=== PATIENT | female | born 1940 | race Caucasian/White ===

== ENCOUNTER → 2019-03-20 | Outpatient (CLI) | payer OTHER ==
[~2019-03-20] MED LIST: ASPI81EC PO; CLOP75; ENAL5 PO; ESTR2; LIVALO2 MG; METO25ER; NITR.6SL SL; NITR100CA PO; Ocuvite Lutein1 EACH; Red Yeast Rice600 MG; [UNRECOGNIZED DRUG - REMARK]
[2019-03-21 13:07] LABS: HPV 16 Negative (Negative); HPV 18 Negative (Negative); HPV OTHER HR TYPES Negative (Negative)
== END | disposition home or self-care (01) ==
LOC: LAB SHORT 11:53 → LAB 11:53
PROVIDERS: Nurse Practitioner Women's Health
DX: Z12.72 Encounter for screening for malignant neoplasm of vagina (principal)
CPT/HCPCS: 87624; G0123

== ENCOUNTER 2020-08-23 07:09 | Inpatient (IN) | payer OTHER, MEDICARE ==
[~2020-08-23] VITALS: Ht 165 cm; Wt 86.9 kg
[~2020-08-23 07:09] MED LIST changes: -ASPI81EC PO; +Aspir 8181 MG PO; +COQ-10100 MG PO; +ENAL10 PO; -ENAL5 PO; -ESTR2; +ESTR2 PO; +EUTHYROX75 MCG PO; +Isosorbide Mono30 MG PO; -METO25ER; +METO25ER PO; +VIT1CAPS12 PO; +VITAMIN D310 MC4 PO; +Vasotec PO
--- NOTE | 2020-08-23 08:47 | NUR ---
Ambulatory in Day Surgery History, Chart, Medications and Allergies reviewed before start of procedure.Patient confirms NPO status and agrees with scheduled surgery. Patient reports completing Chlorhexadine shower X2 prior to admission to hospital.Surgical site prepped with 2% Chlorhexidine cloth wipe. PT WITH PROIR SCRATCH TO L HIP CANCELLED PROIR SURGERY. PREOP ASSESMENT DONE UNDER PROIR ACCT NUMBER. SCRATCH TO L HIP RESOLVED AT THIS TIME. NOSIN NASAL SWABS DONE
--- NOTE | 2020-08-23 15:24 | NUR ---
1140 to room via bed. right hip dressing dry and intact. pt denies any pain. reports slight numbness soles of bilat feet. pt able to do ankle pumps and wiggle toes
--- NOTE | 2020-08-23 18:12 | NUR ---
SUMMARY PT REPORTS 06/02 "DISCOMFORT" TO RIGHT HIP. PT MALLIKA PO FOOD AND FLUIDS, VOIDING CLEAR YELLOW URINE. AMBULATING WITH STANDB ASSIST. HIP DRESSING DRY AND INTACT. PT DENIES ANY NUMBNESS OR TINGLING
[2020-08-24 03:45] LABS: BASOPHILS ABSOLUTE AUTO 0.03 K/mm3 (0.00-0.23); BASOPHILS PERCENT AUTO 0 % (0-2); EOSINOPHILS PERCENT AUTO 1 % (0-6); Hematocrit 34.1 % (33.0-51.0); IMMATURE GRAN ABSOLUTE AUTO 0.03 K/mm3 (0.00-0.10); IMMATURE GRAN PERCENT AUTO 0 % (0-1); LYMPHOCYTES ABSOLUTE AUTO 0.74 K/mm3 (0.84-5.20); LYMPHOCYTES PERCENT AUTO 8 % (21-46); MONOCYTES ABSOLUTE AUTO 0.68 K/mm3 (0.16-1.47); MONOCYTES PERCENT AUTO 7 % (4-13); Mean Corpuscular HGB 28.2 pg (26.0-34.0); Mean Corpuscular HGB Conc 32.3 g/dL (31.5-36.5); Mean Corpuscular Volume 87 fL (80-100); Mean Platelet Volume 10.4 fL (9.1-12.4); NEUTROPHILS ABSOLUTE AUTO 7.96 K/mm3 (1.96-9.15); NEUTROPHILS PERCENT AUTO 84 % (41-73); Platelet Count 208 K/mm3 (150-400); RDW Coefficient Variation 14.6 % (11.7-14.2); RDW Standard Deviation 46.7 fL (35.1-46.3); White Blood Cell Count 9.54 K/mm3 (4.00-11.30)
[2020-08-24 04:01] LABS: Anion Gap 4 mmol/L (6-16); Blood Urea Nitrogen 24 mg/dL (8-24); Bun/Creatinine Ratio 29.2 (12.0-20.0); CO2, Blood 26 mmol/L (21-32); Chloride, Blood 108 mmol/L (98-108); Creatinine, Blood 0.82 mg/dL (0.40-1.00); Glomerular Filtration Rate >60 (60-); Glucose, Blood 122 mg/dL (70-99); Potassium, Blood 4.2 mmol/L (3.5-5.5); Sodium, Blood 138 mmol/L (136-145)
--- NOTE | 2020-08-24 06:09 | NUR ---
SHIFT SUMMARY POD1 RTHA, A/O X4, VSS, TOLERATING PO, VOIDING WELL, AMBULATING W/ 1 PERSON SBA, PAIN WELL MANAGED W/ REGULAR SCHEDULED MEDICATIONS. NO ACUTE EVENTS THIS SHIFT. CALL LIGHT IN REACH, WILL CONTINUE TO MONITOR AND REPORT TO ONCOMING DAY RN.
[2020-08-24] MEDS ORDERED: Percocet 5-3251 EACH PO (09:54)
--- NOTE | 2020-08-24 10:30 | NUR ---
REMOVED PERIPHERAL WNL, PT AND SPOUSE PROVIDED WITH DISCHARGE TEACHING, PRINTED PATERIALS AND STATE UNDERSTANDING OF INSTRUCTIONS. PT'S SPOUSE TRANSFERRED PT'S BELONGINGS TO AWAITING VEHICLE. PT TRANSFERRED TO AWAITING VEHICLE VIA WHEELCHAIR. PT PROVIDED WITH AQUACEL DRESSING X 1 FOR DRESSING CHANGE.
--- NOTE | 2020-08-24 10:38 | NUR ---
DC'D [place] INSTRUCTIONS GIVEN BY MARTA CEDILLO.
== END 2020-08-24 10:35 | disposition home or self-care (01) | DRG 470 ==
LOC: SURS 07:09 → PRE IP 09:00 → SURS 12:11
PROVIDERS: ADMIT Orthopaedic Surgery
PROC: 0SR904A Replacement of Right Hip Joint with Ceramic on Polyethylene Synthetic Substitute, Uncemented, Open Approach (ICD-10-PCS; principal; 2020-08-23 09:00)
DX: M16.11 Unilateral primary osteoarthritis, right hip (principal); I13.0 Hypertensive heart and chronic kidney disease with heart failure and stage 1 through stage 4 chronic kidney disease, or unspecified chronic kidney disease; I25.10 Atherosclerotic heart disease of native coronary artery without angina pectoris; N18.9 Chronic kidney disease, unspecified; E78.5 Hyperlipidemia, unspecified; I50.9 Heart failure, unspecified; K21.9 Gastro-esophageal reflux disease without esophagitis; E66.9 Obesity, unspecified; E07.9 Disorder of thyroid, unspecified; Z95.3 Presence of xenogenic heart valve; Z87.891 Personal history of nicotine dependence; Z79.899 Other long term (current) drug therapy; Z95.1 Presence of aortocoronary bypass graft; Z68.32 Body mass index [BMI] 32.0-32.9, adult
CPT/HCPCS: 36415; 72170; 80048; 85025; 97110; 97116; 97161; 97530; A9270; C1776; J0171; J0690; J0735; J1885; J2370; J2405; J2704; J2795; J3010; J7120

== ENCOUNTER → 2021-10-29 | Outpatient (CLI) | payer OTHER ==
[~2021-10-29] MED LIST changes: +Percocet 5-3251 EACH PO
== END | disposition home or self-care (01) ==
LOC: PLD 14:57 → LAB SHORT 14:57
DX: D22.5 Melanocytic nevi of trunk (principal)
CPT/HCPCS: 88305

== ENCOUNTER 2023-01-15 08:40 | Emergency (ER) | payer OTHER ==
[~2023-01-15] VITALS: Ht 165.1 cm; Wt 83.5 kg
[~2023-01-15 08:40] MED LIST changes: +Amlodipine Bes2.5 MG PO; -EUTHYROX75 MCG PO; +EUTHYROX88 MCG PO; +ISOSORBIDE MONO30 MG PO; +PLAVIX75 MG PO
[2023-01-15 09:19] VITALS: BP 185/78
== END 2023-01-15 09:22 | disposition home or self-care (01) ==
LOC: ER 08:40
DX: R04.0 Epistaxis (principal); I10 Essential (primary) hypertension; I25.10 Atherosclerotic heart disease of native coronary artery without angina pectoris; E03.9 Hypothyroidism, unspecified; Z79.82 Long term (current) use of aspirin; Z79.890 Hormone replacement therapy; Z79.899 Other long term (current) drug therapy; Z88.8 Allergy status to other drugs, medicaments and biological substances; Z95.1 Presence of aortocoronary bypass graft; Z87.891 Personal history of nicotine dependence
CPT/HCPCS: 99283

== ENCOUNTER 2023-01-19 09:14 | Emergency (ER) | payer OTHER ==
[~2023-01-19] VITALS: Ht 165.1 cm; Wt 83.5 kg
[2023-01-19 10:19] VITALS: BP 175/71
== END 2023-01-19 10:37 | disposition home or self-care (01) ==
LOC: ER 09:14
DX: R04.0 Epistaxis (principal); I10 Essential (primary) hypertension; I25.10 Atherosclerotic heart disease of native coronary artery without angina pectoris; Z87.891 Personal history of nicotine dependence
CPT/HCPCS: 99283

== ENCOUNTER 2023-01-26 12:16 | Emergency (ER) | payer OTHER ==
[~2023-01-26] VITALS: Ht 165.1 cm; Wt 83.9 kg
[2023-01-26 12:25] VITALS: BP 150/74
== END 2023-01-26 13:40 | disposition home or self-care (01) ==
LOC: ER 12:16
DX: R04.0 Epistaxis (principal); I10 Essential (primary) hypertension; I25.10 Atherosclerotic heart disease of native coronary artery without angina pectoris; Z79.899 Other long term (current) drug therapy; Z79.02 Long term (current) use of antithrombotics/antiplatelets; Z88.8 Allergy status to other drugs, medicaments and biological substances; Z95.1 Presence of aortocoronary bypass graft; Z87.891 Personal history of nicotine dependence
CPT/HCPCS: 30901; 99283-25

== ENCOUNTER 2023-06-20 00:41 | Observation (INO) | payer OTHER ==
[~2023-06-20] VITALS: Ht 165.1 cm; Wt 82.1 kg
[2023-06-20] VITALS (7 sets, daily range): BP systolic 130–180; BP diastolic 52–75
[2023-06-20] MEDS ORDERED: SYNTHROID75 MCG PO (01:10)
[2023-06-20] MEDS ORDERED: NITROGLYCERIN0.4 M3 SL (01:11)
[2023-06-20 01:19] LABS: BASOPHILS ABSOLUTE AUTO 0.04 K/mm3 (0.00-0.23); BASOPHILS PERCENT AUTO 1 % (0-2); EOSINOPHILS ABSOLUTE AUTO 0.13 K/mm3 (0.00-0.68); EOSINOPHILS PERCENT AUTO 3 % (0-6); Hematocrit 41.6 % (33.0-51.0); Hemoglobin 13.3 g/dL (11.5-16.0); IMMATURE GRAN ABSOLUTE AUTO 0.02 K/mm3 (0.00-0.10); IMMATURE GRAN PERCENT AUTO 0 % (0-1); LYMPHOCYTES PERCENT AUTO 25 % (21-46); MONOCYTES ABSOLUTE AUTO 0.68 K/mm3 (0.16-1.47); MONOCYTES PERCENT AUTO 13 % (4-13); Mean Corpuscular HGB 27.8 pg (26.0-34.0); Mean Corpuscular Volume 87 fL (80-100); Mean Platelet Volume 10.4 fL (9.1-12.4); NEUTROPHILS ABSOLUTE AUTO 2.98 K/mm3 (1.96-9.15); NEUTROPHILS PERCENT AUTO 58 % (41-73); Platelet Count 218 K/mm3 (150-400); RDW Coefficient Variation 15.6 % (11.7-14.2); RDW Standard Deviation 49.3 fL (35.1-46.3); Red Blood Cell Count 4.78 M/mm3 (3.80-5.20); White Blood Cell Count 5.15 K/mm3 (4.00-11.30)
[2023-06-20 01:36] LABS: Albumin, Blood 3.6 g/dL (3.4-5.0); Bilirubin, Total 0.4 mg/dL (0.1-1.0); Bun/Creatinine Ratio 22.8 (12.0-20.0); Calcium, Blood 8.9 mg/dL (8.5-10.1); Creatinine, Blood 1.01 mg/dL (0.40-1.00); Globulin, Blood 3.5 g/dL (2.2-4.0); Potassium, Blood 4.2 mmol/L (3.5-5.5); Total Protein, Blood 7.1 g/dL (6.4-8.2)
[2023-06-20 05:26] LABS: BASOPHILS ABSOLUTE AUTO 0.03 K/mm3 (0.00-0.23); BASOPHILS PERCENT AUTO 1 % (0-2); EOSINOPHILS PERCENT AUTO 2 % (0-6); Hematocrit 39.2 % (33.0-51.0); Hemoglobin 12.6 g/dL (11.5-16.0); IMMATURE GRAN ABSOLUTE AUTO 0.02 K/mm3 (0.00-0.10); IMMATURE GRAN PERCENT AUTO 0 % (0-1); LYMPHOCYTES ABSOLUTE AUTO 1.02 K/mm3 (0.84-5.20); LYMPHOCYTES PERCENT AUTO 19 % (21-46); MONOCYTES ABSOLUTE AUTO 0.57 K/mm3 (0.16-1.47); MONOCYTES PERCENT AUTO 11 % (4-13); Mean Corpuscular HGB 27.9 pg (26.0-34.0); Mean Corpuscular HGB Conc 32.1 g/dL (31.5-36.5); Mean Corpuscular Volume 87 fL (80-100); Mean Platelet Volume 10.8 fL (9.1-12.4); NEUTROPHILS ABSOLUTE AUTO 3.62 K/mm3 (1.96-9.15); NEUTROPHILS PERCENT AUTO 68 % (41-73); Platelet Count 197 K/mm3 (150-400); RDW Coefficient Variation 15.6 % (11.7-14.2); RDW Standard Deviation 49.1 fL (35.1-46.3); Red Blood Cell Count 4.51 M/mm3 (3.80-5.20); White Blood Cell Count 5.36 K/mm3 (4.00-11.30)
[2023-06-20 06:05] LABS: Albumin, Blood 3.4 g/dL (3.4-5.0); Albumin/Globulin Ratio 1.1 (0.8-1.8); Bilirubin, Total 0.4 mg/dL (0.1-1.0); Bun/Creatinine Ratio 22.4 (12.0-20.0); Calcium, Blood 8.7 mg/dL (8.5-10.1); Creatinine, Blood 0.85 mg/dL (0.40-1.00); Globulin, Blood 3.2 g/dL (2.2-4.0); Potassium, Blood 4.2 mmol/L (3.5-5.5); Total Protein, Blood 6.6 g/dL (6.4-8.2)
--- NOTE | 2023-06-20 06:50 | NUR ---
SHIFT SUMMARY ADMITTED PT TO ROOM. ORIENTED TO ROOM. EDUCATED HOW TO USE CALL LIGHT. COMPLETED MED REC AND QUICK ADMIT. SKIN ASSESS VERIFIED. PT AWAKE AND PLEASANT. COOPERATIVE WITH CARE. MEDICATED FOR NAUSEA X1.
[2023-06-20 16:29] LABS: International Normalized Ratio 0.98; Prothrombin Time Results 10.3 Sec (9.7-11.5)
--- NOTE | 2023-06-20 17:17 | NUR ---
SHIFT SUMMARY PT DENIES CP SINCE TALKING TO HER ON THE PHONE THIS AM. CP WAS L SIDED AT THIS TIME. TELE RUNNING SINUS LILIANA T/O SHIFT. TROPONIN INCREASED TO 148. MD NOTIFIED AT THE TIME. AWAITING ECHO. HEPARIN GTT STARTED THIS AFTERNOON. PT STARTED ON HEALTH HEALTHY DIET, BUT WILL BE NPO AT MIDNIGHT FOR POSSIBLE STRESS TEST TOMORROW VS CARDIOLOGY CONSULT PER DR. MACHADO. NO OTHER ACUTE CHANGES IN ASSESSMENT AT THIS TIME. VS REVIEWED. CALL LIGHT IN REACH.
--- NOTE | 2023-06-20 19:39 | NUR ---
AT 1909 C/O CP 5 OUT OF 10. BP ELEVATED. NITOR SL X 1. 3 MIN LATER, PAIN DROPPED TO "0" OUT OF 10. ALERT AND ORIENTED X 4. LAB JUST CALLED (1938) ÁLVARO TROP LEVEL 320. PT ASYMPTOMATIC. WILL CALL
--- NOTE | 2023-06-20 20:16 | NUR ---
C/O CHEAA PAIN AGAIN AT 1953, PAIN 7 OUT OF 10. NITRO SL GIVEN AGAIN. A FEW MINUTES LATER, 0 OUT OF 10. ASYMPTOMATIC. MED TELE "SINUS RHYTHM AT 63". MD WAS NOTIFIED OF ELEVATED TROP LEVEL (320) AND ORDERED A FOLLOW UP TROP LEVEL IN 2 HRS (2129) AND PRN EKG'S FOR WHEN HAVING HEAT PAIN. 12 LEAD EKG DONE: NORMAL SINUS RHYTHM 61. REPOSITIONED. CALL LIGHT IN REACH. RESTING QUIETLY. NO S/S ACUTE DISTRESS. WWILL CONTINUE TO MONITOR
--- NOTE | 2023-06-20 22:04 | NUR ---
LAB CALLED WITH FOLLOW UP TROP LEVEL. 419, TRENDING DOWN FROM 420. GOING IN CORRECT DIRECTION. ASYMPTOMATIC. CHARGE NURSE NOTIFIED. CALL LIGHT IN REACH. WILL CONTINUE TO MONITOR
--- NOTE | 2023-06-20 23:21 | NUR ---
CHEST PAIN AGAIN, 10 OUT OF 10. NITRO SL ADMIN AGIN, PAIN LEVEL DROPPED TO 2 OUT OF 10. ALERT. MED TELE SINUS RHYTHM 60. BP 156/68, HR 59, O2 SATS 96%. ASYMPTOMAIC OTHERWISE. PT SCEDULED TO BE NPO AT 2400 FOR STRESS TEST IN THE AM. CALL LIGHT IN REACH. WILL CONTINUE TO MONITOR
[2023-06-21 00:14] VITALS: BP 151/78
--- NOTE | 2023-06-21 00:17 | NUR ---
0015 CHEST PAIN 0.4MG NITRO ADMINISTERED FOR 10/10 CHEST PAIN. EKG DOCUMENTED AND ADDED TO PT CHART. 0018 PAIN LEVEL DOWN TO 0/10.
[2023-06-21 04:27] VITALS: BP 178/67
[2023-06-21 05:16] VITALS: BP 149/62
--- NOTE | 2023-06-21 05:22 | NUR ---
SHIFT SUMMARY PT EXPERIENCING SEVERE CHEST PAIN. SEVERAL DOSES OF NITRO ADMINISTERED THROUGH NIGHT. 1909, 1954, 2309, 0008. HEPARIN DRIP STARTED AT 1655 BY PREVIOUS SHIFT. EKG PERFORMED MULTIPLE TIMES. RESULTS IN PT CHART. TRIED REPOSITIONING, LAYING, STANDING, SITTING. NOTHING HELPED UNTIL NITRO DOSE. FELL ASLEEP APPROX 0400.
[2023-06-21 05:41] LABS: BASOPHILS ABSOLUTE AUTO 0.06 K/mm3 (0.00-0.23); BASOPHILS PERCENT AUTO 1 % (0-2); EOSINOPHILS ABSOLUTE AUTO 0.18 K/mm3 (0.00-0.68); EOSINOPHILS PERCENT AUTO 4 % (0-6); Hematocrit 37.8 % (33.0-51.0); Hemoglobin 12.3 g/dL (11.5-16.0); IMMATURE GRAN ABSOLUTE AUTO 0.02 K/mm3 (0.00-0.10); IMMATURE GRAN PERCENT AUTO 0 % (0-1); LYMPHOCYTES ABSOLUTE AUTO 1.22 K/mm3 (0.84-5.20); LYMPHOCYTES PERCENT AUTO 25 % (21-46); MONOCYTES ABSOLUTE AUTO 0.61 K/mm3 (0.16-1.47); MONOCYTES PERCENT AUTO 12 % (4-13); Mean Corpuscular HGB 28.3 pg (26.0-34.0); Mean Corpuscular HGB Conc 32.5 g/dL (31.5-36.5); Mean Corpuscular Volume 87 fL (80-100); Mean Platelet Volume 10.7 fL (9.1-12.4); NEUTROPHILS ABSOLUTE AUTO 2.86 K/mm3 (1.96-9.15); NEUTROPHILS PERCENT AUTO 58 % (41-73); Platelet Count 190 K/mm3 (150-400); RDW Coefficient Variation 15.5 % (11.7-14.2); RDW Standard Deviation 49.1 fL (35.1-46.3); Red Blood Cell Count 4.35 M/mm3 (3.80-5.20); White Blood Cell Count 4.95 K/mm3 (4.00-11.30)
[2023-06-21 06:18] LABS: Albumin, Blood 3.2 g/dL (3.4-5.0); Albumin/Globulin Ratio 1.1 (0.8-1.8); Bilirubin, Total 0.5 mg/dL (0.1-1.0); Bun/Creatinine Ratio 18.3 (12.0-20.0); Calcium, Blood 8.5 mg/dL (8.5-10.1); Creatinine, Blood 0.88 mg/dL (0.40-1.00); Potassium, Blood 4.2 mmol/L (3.5-5.5); Total Protein, Blood 6.2 g/dL (6.4-8.2)
[2023-06-21 07:46] VITALS: BP 152/68
[2023-06-21 15:15] VITALS: BP 117/47
--- NOTE | 2023-06-21 18:21 | NUR ---
SHIFT SUMMARY: PT TRANSFERRED PT ROOM 305 THIS AFTERNOON FROM [facility]. PT INDEPENDENT IN ROOM. NO C/O CHEST PAIN SINCE TRANSFER. PT RECEIVED ONE DOSE OF NITRO THIS AM. TROPONIN TRENDING UPWARD. VITAL SIGNS STABLE. PT SATED SHE HAS NOT HAD BM SINCE DAY OF ARRIVAL. CALL LIGHT IN REACH. NO NEEDS FROM PT AT THIS TIME.
[2023-06-21 21:06] VITALS: BP 149/62
--- NOTE | 2023-06-22 04:00 | NUR ---
SHIFT SUMMARY; PATIENT HAD UNEVENTFUL NIGHT. SHE DID EXPRESS CONCERN THAT SHE IS NOT TAKING HER ENALAPRIL. AND THAT HER NORVASC HAD BEEN CHANGED BY HER DR TO 5MG DAILY FROM 2.5MG DAILY. PATIENT SAYS SHE IS NOT ANXIOUS HOWEVER ADMITS DURING NOC SHIFT THAT SHE LIKES THINGS HER WAY AND IF THEY ARE NOT IT MAKES HER NERVOUS. ALSO HER RECENTLY GOT OUT OF THE HOSPITAL AND SHE WORRIES ABOUT BEING ABLE TO CARE FOR HIM.
[2023-06-22 04:11] VITALS: BP 151/62
[2023-06-22 07:38] VITALS: BP 151/65
[2023-06-22] MEDS ORDERED: ASPI325 PO (09:39)
[2023-06-22] MEDS ORDERED: COLCHICINE0.6 MG PO (09:39)
[2023-06-22 10:10] LABS: C-REACTIVE PROTEIN, EXT RANGE <0.290 mg/dL (0.000-0.300)
--- NOTE | 2023-06-22 11:49 | NUR ---
DISCHARGE: PT D/C @1105 VIA WHEELCHAIR WITH . RX MEDICATIONS FAXEDM TO [facility]. IV IN RFA REMOVED W/O COMPLICATIONS. NO CHEST PAIN TODAY. ALL BELONGINGS SENT WITH PT. PT STATES HAS APT WITH DR. CHENG TOMORROW AND WILL CHECK BLOOD PRESSURE AND MAKE FOLLOW-UP APPOINTMENT THEN.
== END 2023-06-22 11:09 | disposition home or self-care (01) ==
LOC: ER 00:41 → MEDS 00:42
PROVIDERS: Emergency Medicine; Family Medicine; Internal Medicine; ADMIT Internal Medicine
DX: I25.118 Atherosclerotic heart disease of native coronary artery with other forms of angina pectoris (principal); I10 Essential (primary) hypertension; E03.9 Hypothyroidism, unspecified; E78.5 Hyperlipidemia, unspecified; I12.9 Hypertensive chronic kidney disease with stage 1 through stage 4 chronic kidney disease, or unspecified chronic kidney disease; N18.30 Chronic kidney disease, stage 3 unspecified; K21.9 Gastro-esophageal reflux disease without esophagitis; Z95.1 Presence of aortocoronary bypass graft; Z87.891 Personal history of nicotine dependence; Z88.8 Allergy status to other drugs, medicaments and biological substances; Z79.899 Other long term (current) drug therapy; Z86.73 Personal history of transient ischemic attack (TIA), and cerebral infarction without residual deficits
CPT/HCPCS: 36415; 71045; 71260; 80053; 83690; 83880; 84443; 84484; 85025; 85379; 85610; 85730; 86140; 93005; 93010; 93308; 93321; 96372; 96374; 96375; 96376; 99285-25; A9270; C9113; G0378; J1644; J1650; J2270; J2405; J3010; J7030; Q9967

== ENCOUNTER → 2024-12-09 | Outpatient (CLI) | payer OTHER ==
[~2024-12-09] MED LIST changes: +ASPI325 PO; +COLCHICINE0.6 MG PO; +NITROGLYCERIN0.4 M3 SL; +SYNTHROID75 MCG PO
== END ==
LOC: LAB 11:17 → LAB SHORT 11:17
DX: N39.0 Urinary tract infection, site not specified (principal)
CPT/HCPCS: 87086

== ENCOUNTER → 2025-02-05 | Outpatient (CLI) | payer OTHER ==
[2025-02-05 13:48] LABS: Source, Urine Clean Catch
[2025-02-05 15:42] LABS: Bilirubin, Urine Neg (Neg); Color, Urine Yellow (P-Yellow); Glucose Qualitative, Urine Neg (Neg); Ketones, Urine Neg (Neg); Leukocyte Esterase, Urine 3+ (Neg); Protein, Urine 3+ (Neg); Specific Gravity, Urine 1.025 (1.003-1.022); Urobilinogen, Urine NORM (Normal)
[2025-02-05 15:55] LABS: White Blood Cells, Urine 50-100 /hpf (0-5); Yeast/Fungi Urine Rare /hpf
== END | disposition home or self-care (01) ==
LOC: LAB SHORT 13:46 → LAB 13:46
PROVIDERS: Obstetrics & Gynecology
DX: R30.0 Dysuria (principal)
CPT/HCPCS: 81001; 87077; 87086; 87186

== ENCOUNTER → 2025-02-22 | Outpatient (CLI) | payer OTHER | END | disposition home or self-care (01) | LOC: LAB SHORT 13:13 → LAB 13:13 | DX: N39.0 Urinary tract infection, site not specified (principal) | CPT/HCPCS: 87086 ==